=== PATIENT | male | born 1960 | race Caucasian/White ===

== ENCOUNTER 2016-12-27 04:07 | Inpatient (IN) | payer OTHER ==
[~2016-12-27] VITALS: Ht 182.9 cm; Wt 83.7 kg
[2016-12-27] VITALS (12 sets, daily range): BP systolic 112–138; BP diastolic 74–102; PULSE 76–116; RESP 16–26; O2SAT 79–95
[~2016-12-27 04:07] MED LIST: ALBU8.5H4 IH; ATRINH INH; BECL8.7A6 IH; FUR20 PO; GABA-502 PO; IBUP800T28 PO; LISI10TA2 PO; METF850T2 PO; OMEP-113 PO; OXYC30TA77 PO; REGL PO; ZLP5T PO; flexeril PO
--- NOTE | 2016-12-27 04:15 | ED.REPORT ---
HPI-General Illness Date of Service Dec 27, 2016 ED Provider: Dr. Robledo 56 year old male with a history of COPD, DM, and HTN presents to the ED complaining of SOB onset 3 days ago. The feeling is described as similar to a panic attack. Associated symptoms include productive cough with yellow sputum and mild nausea. Patient denies any vomiting. He has been waking up in the morning with diaphoresis and chills in an 80 degree F house. He also describes feeling generalized "flu-like" body aches the other day. Patient has a history of hospitalization for similar conditions, though he denies ever requiring intubation. He is a smoker who had previously quit for 2.5 years but recently relapsed. Medics at the scene discovered him with an oxygen saturation in the mid 70s, and maximum oxygenation with supplemental oxygen was in the low 80s. Nursing Notes Stated Complaint: SHORTNESS OF BREATH Chief Complaint: Respiratory Complaints Nursing Notes Reviewed: Yes Allergies: Coded Allergies: Iodinated Contrast Media - Oral and (Unverified Allergy, Unknown, 12/27/16) clindamycin HCl (Verified Allergy, Unknown, 12/27/16) clindamycin palmitate HCl (Verified Allergy, Unknown, 12/27/16) clindamycin phosphate (Verified Allergy, Unknown, 12/27/16) morphine (Verified Allergy, Unknown, 12/27/16) Scheduled ([flexeril]) 10 MG PO TID Beclomethasone Dipropionate (Qvar) 8.7 Gm Aer.w.adap 8.7 GM IH BID Furosemide (Furosemide) 20 Mg Tab 20 MG PO DAILY Gabapentin (Gabapentin) 300 Mg Capsule 300 MG PO HS Ipratropium [place] (Atrovent HFA) 200 Puff/12.9 Gm Inhaler 2 PUFF INH QID Lisinopril (Lisinopril) 10 Mg Tablet 10 MG PO DAILY Metformin (Metformin) 850 Mg Tablet 850 MG PO BID Omeprazole Magnesium (Omeprazole) 20 Mg Capsule.dr 20 MG PO DAILY Scheduled PRN Albuterol HFA (Albuterol HFA) 8.5 Gm Hfa.aer.ad 1 PUFF IH Q4 PRN PRN For Shortness of Breath Ibuprofen (Ibuprofen) 800 Mg Tablet 800 MG PO BID PRN PRN For Pain Metoclopramide (Metoclopramide) 5 Mg/5 Ml Syrup 10 MG PO QID PRN PRN For Nausea Zolpidem (Ambien) 5 Mg Tab 10 MG PO HS PRN PRN For Insomnia Miscellaneous Medications Oxycodone ER (Oxycontin) 30 Mg Tab.er.12h 30 MG PO General Time Seen by MD: 04:14 Chief Complaint Breathing problem (Shortness of breath) Hx Obtained From: Patient, Spouse Arrived By: Walk-in Sudden in Onset?: No Onset Occurred: 3 days ago Symptom Duration: Since onset Recent Healthcare: No recent hospitalization, Recent doctor visit Similar Sx Previous: Yes Past Medical History Past Medical History Arthritis in both knees. Gastroesophageal reflux. COPD Diabetes Hypertension Reports: COPD, Diabetes mellitus (Type II), Hypertension Past Surgical History Past surgeries to treat hernia, urethra, testicular torsion, and tonsils. Smoking History Current Every Day Smoker Social History Alcohol Use: "Social" Drug Use: Denies drug use Other Social History: Good social support, Ambulatory Status Cane Review of Systems Full Review of Systems Constitutional: Reports: Chills Respiratory: Reports: Prod cough, yellow, Shortness of breath GI: Reports: Nausea, Denies: Vomiting Musculoskeletal: Reports: Myalgia Skin: Reports Diaphoresis Complete sys rev & neg: except as marked. Physical Exam Vital Signs Vital Signs Date Time Temp Pulse Resp B/P Pulse Ox O2 Delivery O2 Flow Rate FiO2 12/27/16 05:23 105 24 89 OxyMask 7 12/27/16 04:46 105 16 135/102 93 12/27/16 04:10 36.8 116 24 136/91 79 Room Air Initial VS: Reviewed General/Constitutional: Awake, Alert, No acute distress Distress / Hydration: Positive: Distress mild Was distressed and lethargic in triage, but does not appear to be in distress now. Head / Eyes: Atraumatic, Normocephalic ENT: Atraumatic, Airway patent Neck: Atraumatic, Full range of motion Respiratory / Chest: Atraumatic, Breath sounds = bilat Diminished Breath Sounds: Positive: Decreased bilateral Cardiovascular: Heart rate NL, Regular rhythm Heart Sounds / Murmur: Positive: Heart sounds diminished Lower Ext Edema: Positive: Left 1+, Right 2+ Abdomen: Atraumatic, Soft, Non-tender, No guarding, No rebound Back: Atraumatic, Full range of motion Upper Extremities Upper Extremity / MS: Atraumatic, No swelling Lower Extremity / Pelvis / MS: Atraumatic, Full range of motion Skin: Atraumatic, No rash Color / Condition: Positive: Diaphoresis present (Mild) Neurologic: Oriented X3, Speech NL, No motor deficits, No sensory deficits Psychiatric: Affect NL, Mood NL Interpretation & Diagnostics Lab Results Interpretation Result Diagram: 12/27/16 0430 12/27/16 0430 Test 12/27/16 04:30 White Blood Count 6.8th/mm3 (3.8-10.1) Red Blood Count 6.21mil/mm3 (4.40-5.80) Hemoglobin 18.3g/dL (13.8-17.2) Hematocrit 52.5% (41.0-50.0) Mean Corpuscular Volume 84.5fL (81-100) Mean Corpuscular Hemoglobin 29.5pg (27.0-35.0) Mean Corpuscular Hemoglobin Concent 34.9% (32.0-37.0) Red Cell Distribution Width 13.9% (12.3-15.4) Platelet Count 141bil/L (150-400) Neutrophils (%) (Auto) 80.3% (40-74) Lymphocytes (%) (Auto) 5.9% (14-46) Monocytes (%) (Auto) 13.3% (4-12) Eosinophils (%) (Auto) 0.4% (0-5) Basophils (%) (Auto) 0.1% (0-3) Prothrombin Time 10.0sec (8.1-12.5) Prothromb Time International Ratio 0.94ratio Activated Partial Thromboplast Time 33.8sec (22.8-33.0) Sodium Level 138mEq/L (134-144) Potassium Level 4.7mEq/L (3.5-5.2) Chloride Level 96mEq/L (97-108) Carbon Dioxide Level 28mmol/L (18-29) Blood Urea Nitrogen 18mg/dL (6-24) Creatinine 0.87mg/dL (0.76-1.27) Estimat Glomerular Filtration Rate 97mL/min (>59) Glucose Level 159mg/dL (60-99) Lactic Acid Level 0.7mmol/L (0.4-2.0) Calcium Level 8.1mg/dL (8.5-10.1) Magnesium Level 1.9mg/dL (1.6-2.6) Total Bilirubin 0.4mg/dL (0.0-1.2) Aspartate Amino Transf (AST/SGOT) 29U/L (0-50) Alanine Aminotransferase (ALT/SGPT) 18U/L (0-44) Alkaline Phosphatase 97U/L (25-150) Troponin T 0.010ug/L (0.0-0.011) Pro-B-Type Natriuretic Peptide 50.73pg/mL (0-121) Total Protein 6.3g/dL (6.4-8.4) Albumin 2.9g/dL (3.4-5.0) Hold Fontanez Top Tube Received (Received) Lab Results Interpretation: influenza negative ECG Interpretation ECG Interpretation: Sinus tachycardia. Rate is 105. Ventricular premature complex. Right atrial enlargement. Anteroseptal infarct, old. ST elevation suggests acute pericarditis. Time: 05:27 Interpreted by: ED physician X-Ray Chest Interpretation Chest Xray Interpretation: no acute infiltrate, COPD appearance, no cardiomegaly, no acute pneumonia. Interpretation / Wet Read by: Wet read ED physician Re-Eval/Medical Decision Med Decision/Clinical Course 56-year-old chronic smoker with COPD presents with significant hypoxemia hypercarbia and grudgingly response to therapy. He is not requiring pressure support at this time. Oxygenation is adequate after 20 mg of albuterol and a DuoNeb. He has had Decadron IV. Magnesium level is adequate. He is admitted now for further evaluation and management including ongoing IV steroids, nebs, and hydration. X-ray does not show an acute pneumonitis, although he does have a mildly productive cough and may benefit from antibiotics. Source of Hx: Old records, Family () Time of Eval: 05:03 Re-Evaluation/Progress Note: Rechecked patient. Explained test results and need for admission. The pt understands and agrees with the plan. All questions are addressed at this time. Consultation : Referral / Consult Name: Jana Milian DO Call Returned at: 05:44 Petroleum Plant Operator: Agrees with eval, Agrees with plan, Accepts admit Note: Spoke with Dr. Milian, hospitalist, discussed patient's case and plan for admission. Dr. Milian agrees with plan accepts admission. Counseled Regarding: Diagnosis, Lab results, Need for admission Discharge & Departure Primary Impression: Respiratory failure Additional Impression: Acute exacerbation of chronic obstructive pulmonary disease (COPD) Disposition: ADMITTED TO HOSPITAL Discharge Condition All VS Reviewed: Yes Condition: Stable Referrals: Sumaya Francisco (PCP) Anderson Attestation Portions of this note were transcribed by Timbo Payan and Evon Rodriguez. I, Dr. Robledo personally performed the history, physical exam and medical decision -making; I reviewed and confirmed the accuracy of the information in the transcribed note. Signed by: Timbo Payan and Anderson Jaeger, 2016 and 0600. copies to: Sumaya Francisco Christopher W MD Dec 27, 2016 04:14 Timbo Payan Dec 27, 2016 04:27 EVON RODRIGUEZ Dec 27, 2016 05:01
[2016-12-27] MEDS ORDERED: Albuterol-Ipratropium 3 mL Inhalation Solution ONE (04:17)
[2016-12-27] MEDS ORDERED: Albuterol 2.5 mg/3 mL Inhalation Solution NEB ONE ×2 (04:17→04:30)
[2016-12-27] MEDS ORDERED: Dexamethasone 10 mg/mL Inj ONE (04:20)
[2016-12-27] MEDS ORDERED: 0.9% Sodium Chloride 1,000 ML IV ONE (04:27)
[2016-12-27] MEDS ORDERED: Albuterol-Ipratropium 3 mL Inhalation Solution NEB ONE (04:30)
[2016-12-27 04:37] LABS: BASOPHILS % (AUTO) 0.1 % (0-3); EOSINOPHILS % (AUTO) 0.4 % (0-5); MONOCYTES % (AUTO) 13.3 % (4-12); Mean Corpuscular Hemoglobin 29.5 pg (27.0-35.0); Mean Corpuscular Volume 84.5 fL (81-100); NEUTROPHILS % (AUTO) 80.3 % (40-74); Platelet Count 141 bil/L (150-400)
[2016-12-27 05:06] LABS: Magnesium 1.9 mg/dL (1.6-2.6); TROPONIN T 0.01 ug/L (0.0-0.011)
[2016-12-27] MEDS ORDERED: cefTRIAXone Inj 2,000 MG in Dextrose 5% Minibag Plus 50 ML IV ONE (05:20)
[2016-12-27 05:34] LABS: INR 0.94 ratio
[2016-12-27] MEDS ORDERED: Albuterol 2.5 mg/3 mL Inhalation Solution NEB PRN (05:50)
[2016-12-27] MEDS ORDERED: Polyethylene Glycol (PEG) 17 Gm Powder PO PRN ×2 (05:50→10:15)
[2016-12-27] MEDS ORDERED: Ondansetron 2 mg/mL 2 mL Inj IVPUSH PRN ×2 (05:50→10:15)
[2016-12-27] MEDS ORDERED: Alum-Mag Hydrox-Simeth 30 mL Suspension PO PRN ×2 (05:50→10:15)
[2016-12-27 06:23] LABS: APPEARANCE,URINE CLEAR (CLEAR,HAZY); COLOR,URINE YELLOW (YELLOW); OCCULT BLOOD,URINE SMALL (NEGATIVE); UROBILINOGEN,URINE NORMAL (NORMAL)
--- NOTE | 2016-12-27 08:04 | ABG ---
DateTimeAnalyzed 07:57:00 -_ pH ____7.326 - 7.350 7.450 pCO2 ___58.4__ -mmHg 35.0 45.0 pO2 ___71.3__ -mmHg 69.0 116 HCO3- ___29.6__ -mmol/L 22.0 26.0 ABE ____2.1__ -mmol/L -2.0 2.0 tHb ___17.8__ -g/dL O2Hb ___90.6__ -% COHb ____2.1__ -% MetHb ____0.9__ -% sO2 ___93.4__ -% 25.0 FIO2 ___21.0__ -% Drawn By BTL - Date/Time Notified____ 08:04:00 -_ Liter_Flow ____4.0__ -L/min Oxygen Device 1 __CANNULA - Notified By BTL - Notified Whom ___Dr. Xavier Marvin -___ B 751 -mmHg tO2 ___22.6__ -Vol% Xavier test _Positive -
[2016-12-27] MEDS: Albuterol-Ipratropium 3 mL Inhalation Solution NEB SCH ×4 (08:24→20:16)
--- NOTE | 2016-12-27 09:10 | DRSVH ---
PROCEDURE: X-RAY CHEST ONE VIEW, PORTABLE ([id number]) INDICATIONS: sob, copd, productive cough TECHNIQUE: One view of the chest was acquired. COMPARISON: LOCATED WITHIN [facility], , CHEST 2VW, 03/16/2014, 12:46. FINDINGS: Surgical changes and devices: None. Lungs and pleura: No pleural effusions or pneumothorax. Lungs are clear. Diffuse scarring/atelectas is Mediastinum: Mediastinal contours appear normal. Heart size is normal. Bones and chest wall: No suspicious bony lesions. Overlying soft tissues appear unremarkable. IMPRESSION: Diffuse/interstitial changes. No acute disease Dictated by: Martin Crain M.D. on 12/27/2016 at 9:07 Approved by: Martin Crain M.D. on 12/27/2016 at 9:08
[2016-12-27] MEDS ORDERED: predniSONE 20 mg Tablet PO SCH (10:20)
[2016-12-27] MEDS: oxyCODONE ER 10 mg ER12 Tablet PO SCH ×3 (11:30→20:08)
[2016-12-27] MEDS: Pantoprazole 20 mg ER24 Tablet PO SCH (12:29)
[2016-12-27] MEDS ORDERED: Glucose 40% Oral Gel 15 Gm Tube PO PRN (12:40)
[2016-12-27] MEDS ORDERED: ALBU18HF INHALATION (13:03)
--- NOTE | 2016-12-27 13:38 | NUR ---
Admit Pt admitted from ED to [facility] room 3003, report received from Raine Douglas RN. Pt arrived in bed, was able to get up and void on own in bathroom.
[2016-12-27] MEDS ORDERED: ZOLP10TA5 PO (14:03)
[2016-12-27] MEDS ORDERED: CYCL10TA9 PO (14:05)
[2016-12-27] MEDS ORDERED: OXYC30TA80 PO (14:11)
[2016-12-27] MEDS: Insulin LISPRO 300 Unit/3 mL Inj SUBQ SCH ×2 (17:23→22:05)
--- NOTE | 2016-12-27 17:37 | PCM.HPMED ---
Subjective Date of Service Dec 27, 2016 Primary Provider: Admitting Physician: Jana Milian DO Primary Care Physician: Sumaya Francisco Attending Physician: Jana Milian DO Chief Complaint: Shortness of breath. History of Present Illness: Mr. Terry Mendez is a 56 year old male with a history of COPD, diabetes mellitus and hypertension who presents to the ED complaining of SOB onset 3 days ago. Associated symptoms include productive cough with yellow sputum and mild nausea. Patient denies any vomiting. He has been waking up in the morning with diaphoresis and chills and "flu-like" body aches the other day. Patient has a history of hospitalization for similar conditions, though he denies ever requiring intubation. Current smoker with roughly 30-40 pack year history. Medics at the scene discovered him with an oxygen saturation in the mid 70s, and maximum oxygenation with supplemental oxygen was in the low 80s. His vitals are stable on 5L O2 nasal canula. Review of Systems: A comprehensive review of systems was conducted with the patient and found to be negative except as above in the History of Present Illness. Allergies Coded Allergies: Iodinated Contrast Media - Oral and (Unverified Allergy, Unknown, 12/27/16) clindamycin HCl (Verified Allergy, Unknown, 12/27/16) clindamycin palmitate HCl (Verified Allergy, Unknown, 12/27/16) clindamycin phosphate (Verified Allergy, Unknown, 12/27/16) morphine (Verified Allergy, Unknown, 12/27/16) Home Medications Albuterol Beclomethasone Cyclobenzaprine 10 mg TID prn Furosemide 20 daily Gabapentin 300 HS Ibuprofen 800 mg Ipratropium bromide Lisinopril 10 mg daily Metformin 850 BID Metoclopramide 5mg / 5ml syrup 10 mg PO QID prn Omeprazole 20 mg daily Oxycodone ER 30 TID Zolpidem 10 mg HS prn PMH Social History Hx Alcohol Use: No Hx Substance Use: No Hx Tobacco Use: Yes Smoking Status: Current Every Day Smoker Exam Vital Signs Vital Sign - Last Date Time Temp Pulse Resp B/P Pulse Ox O2 Delivery O2 Flow Rate FiO2 12/27/16 15:17 84 20 92 OxyMask 5.00 12/27/16 13:49 36.2 132/88 Intake and Output 12/26/16 12/26/16 12/27/16 Cumulative From/Thru 15:00 23:00 07:00 12/27/16 04:10 - 12/27/16 06:10 Intake Total 1000 ml 1000 ml Balance 1000 ml 1000 ml Intake IV Total 1000 ml 1000 ml Exam General: Well-developed middle-aged gentleman lying in bed in no acute distress , well-developed, well-nourished, appropriately interactive HEENT: Normocephalic, atraumatic. External ears without defect. Pupils equal, round, and reactive to light and accommodation. Anicteric sclerae, moist conjunctivae, and no lid lag. Oropharynx free of erythema and cobble stoning with moist mucosa. Neck: Supple with full range of motion. No jugular venous distension. No bruits. No lymphadenopathy or thyromegaly. Cardiovascular: Tachycardic rate and regular rhythm with no murmurs, rubs, or gallops appreciated Pulmonary: Diffuse coarse rhonchi bilaterally, with minor wheezes, Normal respiratory effort with no use of accessory muscles. Abdomen: Bowel tones present. Soft, nontender, nondistended. No hepatosplenomegaly or masses appreciated. Extremities: No clubbing, cyanosis, edema, or lymphadenopathy appreciated. Hands stained with building mechanic grease Skin: Normal temperature, turgor, and texture; no rash, ulcers, or subcutaneous nodules appreciated. Neurological: Cranial nerves grossly intact. Normal muscle strength, tone, and bulk. Reflexes, coordination, and sensory function within normal limits. No known gait impairment. Psychiatric: Normal mood and affect. Alert and oriented to person, place, and time. Lab and Diagnostics Result Diagram: 12/27/1642912/27/16 043 X-Rays, CTs and MRIs X-RAY CHEST ONE VIEW, PORTABLE IMPRESSION: Diffuse/interstitial changes. No acute disease Dictated by: Martin Crain M.D. on 12/27/2016 at 9:07 Additional Diagnostics: [facility] DateTimeAnalyzed 07:57:00 -_ pH ____7.326 - 7.350 7.450 pCO2 ___58.4__ -mmHg 35.0 45.0 pO2 ___71.3__ -mmHg 69.0 116 HCO3- ___29.6__ -mmol/L 22.0 26.0 Assessment & Plan Mr. Terry Mendez is a 56 year old male with a history of COPD, diabetes mellitus and hypertension who presents to the ED complaining of SOB onset 3 days ago with diaphoresis and chills and "flu-like" body aches, and yellow productive sputum with cough. Current smoker with roughly 30-40 pack year history. EMS reports oxygen sats in the mid 70s, and maximum oxygenation with supplemental oxygen was in the low 80s. His vitals are stable on 5L O2 nasal canula. 1. Acute hypercarbic respiratory failure, present on admission. Active. - ABG as above. - Secondary to combination COPD, bacterial pneumonia, respiratory viral infection, continued inhalation of tobacco smoke. - Current is saturating 94% on 5 L nasal cannula. Not on home O2. - Continue supportive care. 1. Acute exacerbation of COPD, present on admission. Active. - Secondary to viral and bacterial infection, as well as continued inhalation of tobacco smoke. - Prednisone 20 mg by mouth daily. - Scheduled duo nebs. - Titrate oxygen to between 88-92%. - Chest X ray - Diffuse/interstitial changes. No acute disease - Strep pneumonia antigen positive in the urine. - Continue ceftriaxone 1 g IV daily. 2. Acute bacterial pneumonia, present on admission. Active. - Legionella antigen, urine negative. - Strep pneumonia antigen in the urine positive. - Continue ceftriaxone 1 g daily. - Blood cultures x2 pending. - Continue supportive treatment per above. - Procalcitonin pending. - White blood cell count normal. 3. Acute viral upper respiratory infection, present on admission. Active. - Viral PCR positive for human metapneumovirus. - Supportive care. 4. Chronic pain and opioid dependence, present on admission. Active - Continue home regimen. 5. Diabetes mellitus, present on admission. Active. - Low-dose nutritional and correctional insulin. 6. Chronic hypertension, not present on admission. Active. - Continue home medications - Lasix 20 mg daily - Lisinopril 10 mg daily 7. Tobacco dependence, present on admission. Active. - Nicotine patch when necessary. 8. Chronic gastroparesis, present on admission. Treated. - Continue home metoclopramide 10 mg by mouth twice a day. 9. Chronic diabetic neuropathy, present admission. Active. - Continue gabapentin 300 at night. 10. Chronic GERD, present on admission. Treated. - Omeprazole 20 mg daily. Acetaminophen for mild pain when necessary. Bowel regimen Senna and MiraLAX scheduled and PRN. Zofran when necessary for nausea and vomiting. SubQ heparin held for now. SCDs in place. High-risk medications: Disposition: Likely here for > 2 midnights. Dependent upon respiratory status and infections markers. Will be discharged home when medically stable. Pain Evaluation: Adequate Pain Control Resuscitation Status: CPR: Attempt Resuscitation Time spent 45 minutes Attending Statement Patient seen and examined with house staff. Agree with all attached documentation. SHANNON CUEVAS DO Dec 27, 2016 17:37 Xavier Wong MD Dec 27, 2016 18:16
[2016-12-28] VITALS (13 sets, daily range): BP systolic 106–130; BP diastolic 71–77; PULSE 74–98; RESP 18–22; O2SAT 90–95
[2016-12-28] MEDS: Albuterol-Ipratropium 3 mL Inhalation Solution NEB SCH ×6 (00:18→20:47)
[2016-12-28] MEDS: oxyCODONE ER 10 mg ER12 Tablet PO SCH ×3 (05:09→20:34)
[2016-12-28 06:08] LABS: BASOPHILS % (AUTO) 0 % (0-3); EOSINOPHILS % (AUTO) 0.2 % (0-5); MONOCYTES % (AUTO) 17.6 % (4-12); Mean Corpuscular Hemoglobin 29.3 pg (27.0-35.0); Mean Corpuscular Volume 86.1 fL (81-100); NEUTROPHILS % (AUTO) 72.8 % (40-74); Platelet Count 131 bil/L (150-400)
--- NOTE | 2016-12-28 06:24 | NUR ---
SAO2/Pain Patient arrived to floor on 5L oxy mask, history of COPD. Raised to 6L, possibly with RT. Is now on 4L oxy mask with sats ranging 91-94%. Patient arrived to ED with sats in the 70's, and desats in room with oxy mask off to take oral medications. He does not use O2 at home. Patient ind. to toilet, experienced some shortness of breath with activity. Complaints of 7-9 out of 10 pain to right shoulder and side. Receiving Oxy 30mg PO TID.
--- NOTE | 2016-12-28 08:29 | PCM.PNMED ---
Subjective Date of Service Dec 28, 2016 Subjective Patient notes feeling significant improvement since presentation yesterday in regard to breathing effort. Feeling so well he is inquiring about discharge later this afternoon or evening, but certainly admits he is not yet anywhere near back to baseline. His oxygen documentation has been weaned some but he still requiring high level to maintain adequate saturations. Denies any fever chills sweats, notes with oxygen deprivation his breathing is comfortable. He has any chest pains or palpitations. That is good no other acute complaints at this time. Exam Vital Signs Vital Sign - Last Date Time Temp Pulse Resp B/P Pulse Ox O2 Delivery O2 Flow Rate FiO2 12/28/16 07:00 36.4 74 20 117/73 93 OxyMask 4.00 Intake and Output 12/27/16 12/27/16 12/28/16 Cumulative From/Thru 15:00 23:00 07:00 12/27/16 04:10 - 12/28/16 05:02 Intake Total 0 ml 1000 ml Output Total 225 ml 225 ml Balance -225 ml 0 ml 775 ml Intake Oral 0 ml 0 ml IV Total 1000 ml Output Urine Total 225 ml 225 ml # Voids 1 1 General: Alert, Oriented X3, Cooperative, Mild Distress Eyes: PERRLA, EOMI Mouth: Mucous Membr Moist/[place] Chest & Lungs: Other (significant wheezing noted in all lung prince with both inspiration and more pronounced with expiration. No consolidation noted airflow is present in all lung prince .) Cardiovascular: Regular Rate/Rhythm Abdomen: Non-tender Extremities: No cyanosis/clubbing/edma bilat Neurological: Grossly Neurologically Intact IVs and Medications Medications Reviewed: Medications were reviewed in detail Lab and Diagnostics Result Diagram: 12/28/1652612/28/16526 X-Rays, CTs and MRIs X-RAY CHEST ONE VIEW, PORTABLE IMPRESSION: Diffuse/interstitial changes. No acute disease Dictated by: Martin Crain M.D. on 12/27/2016 at 9:07 Additional Diagnostics [facility] DateTimeAnalyzed 07:57:00 -_ pH ____7.326 - 7.350 7.450 pCO2 ___58.4__ -mmHg 35.0 45.0 pO2 ___71.3__ -mmHg 69.0 116 HCO3- ___29.6__ -mmol/L 22.0 26.0 Assessment & Plan Mr. Terry Mendez is a 56 year old male with a history of COPD, diabetes mellitus and hypertension who presents to the ED complaining of SOB onset 3 days ago with diaphoresis and chills and "flu-like" body aches, and yellow productive sputum with cough. Current smoker with roughly 30-40 pack year history. EMS reports oxygen sats in the mid 70s, and maximum oxygenation with supplemental oxygen was in the low 80s. His vitals are stable on 5L O2 nasal canula. 1. Acute hypercarbic respiratory failure, present on admission. Active. - ABG as above. - P is likely secondary to her viral respiratory infection with secondary COPD exacerbation. - He is improving with oxygen supplementation and steroid therapy in addition to his home COPD medications. - Continue supportive care consider discharge when respiratory function is further improved, to be off oxygen of course as this is his status at home. - Cessation is paramount importance and this was counseled the patient. 1. Acute exacerbation of COPD, present on admission. Active. - Secondary to viral and bacterial infection, as well as continued inhalation of tobacco smoke. - Prednisone 40 mg by mouth continued daily, for at least 5 day course but may be adjusted based on patient response. - Scheduled duo nebs, willing to when necessary as patient condition improves. - Titrate oxygen to between 88-92%. - Chest X ray - Diffuse/interstitial changes. No acute disease - Strep pneumonia antigen positive in the urine, our regular normal white blood cell count lack of fever and normal pro-calcitonin I do not feel acute bacterial pneumonia is playing a role in patients respiratory failure. . - Continue ceftriaxone 1 g IV daily as precaution, likely discontinue with 3 day course to treat only urinary infection, should blood cultures be negative. 2. Acute bacterial pneumonia, present on admission. Active. - Legionella antigen, urine negative. - Strep pneumonia antigen in the urine positive. - Continue ceftriaxone 1 g daily, plan to discontinue as noted above. - Blood cultures x2 pending. - Continue supportive treatment per above. - Procalcitonin not supportive of extraluminal - White blood cell count maintenance normal. 3. Acute viral upper respiratory infection, present on admission. Active. - Viral PCR positive for human metapneumovirus. - Supportive care. 4. Chronic pain and opioid dependence, present on admission. Active - Continue home regimen. 5. Diabetes mellitus, present on admission. Active. - Low-dose nutritional and correctional insulin. 6. Chronic hypertension, not present on admission. Active. - Continue home medications - Lasix 20 mg daily - Lisinopril 10 mg daily 7. Tobacco dependence, present on admission. Active. - Nicotine patch when necessary. 8. Chronic gastroparesis, present on admission. Treated. - Continue home metoclopramide 10 mg by mouth twice a day. 9. Chronic diabetic neuropathy, present admission. Active. - Continue gabapentin 300 at night. 10. Chronic GERD, present on admission. Treated. - Omeprazole 20 mg daily. Pain Evaluation: Adequate Pain Control VTE Mechanical Devices: Intermittant Pneumatic CD Resuscitation Status: CPR: Attempt Resuscitation Time spent 25 minutes Howie Garay DO Dec 28, 2016 08:29
[2016-12-28] MEDS ORDERED: predniSONE 20 mg Tablet PO SCH (08:30)
[2016-12-28] MEDS: Pantoprazole 20 mg ER24 Tablet PO SCH (08:38)
[2016-12-28] MEDS: Insulin LISPRO 300 Unit/3 mL Inj SUBQ SCH ×4 (08:38→22:00)
[2016-12-28] MEDS ORDERED: 0.9% Sodium Chloride 100 ML ONE (08:40)
[2016-12-28] MEDS: cefTRIAXone Inj 1,000 MG in Dextrose 5% Minibag Plus 50 ML IV SCH (08:41)
--- NOTE | 2016-12-28 08:49 | DRSVH ---
PROCEDURE: X-RAY CHEST ONE VIEW, PORTABLE ([id number]) INDICATIONS: possible pneumonia, shortness of breath TECHNIQUE: One view of the chest was acquired. COMPARISON: [facility], CR, XR CHEST 1VW (PORTABLE), 12/27/2016, 4:24. FINDINGS: Surgical changes and devices: None. Lungs and pleura: No pleural effusions or pneumothorax. Lungs are clear. Mediastinum: Mediastinal contours appear normal. Heart size is normal. Bones and chest wall: No suspicious bony lesions. Overlying soft tissues appear unremarkable. IMPRESSION: No acute pulmonary process. Dictated by: Frances Toney M.D. on 12/28/2016 at 8:46 Approved by: Frances Toney M.D. on 12/28/2016 at 8:48
--- NOTE | 2016-12-28 10:11 | NUR ---
Social Work: Screening Data: Pt is a 56 y/o male admitted for COPD, hypoxemia respiratory failur. Pt's PCP is Dr Francisco, pt's insurance is [employer]. EMR reviewed. Pt's readmit score is 3, high. No d/c planning needs anticipated at this time. CIGARETTE FILTER INSPECTOR will continue to follow if needs arise. Assessment: Pt who is independent at baseline. Plan: Pt will d/c home via POV when medically stable. No d/c planning needs anticipated at this time. CIGARETTE FILTER INSPECTOR will continue to follow if needs arise. ALEXANDRA Newman
--- NOTE | 2016-12-28 15:43 | NUR ---
Pain Pt was reporting 7-8/10 pain in knees and right shoulder. Pt appeared pale and diaphoretic, with mild tremors. Spoke with charge nurse, and received permission to administer Oxycontin ~2 hours before next dose was due. Pain reassessed one hour after administration: Pt reported new pain level of 5/10; physical appeared more relaxed. Tremors no longer noted, color returned to normal/pink, no longer sweaty.
[2016-12-28] MEDS: Fluticasone 100 mCg Inhaler INHALATION SCH (20:34)
[2016-12-29] VITALS (14 sets, daily range): BP systolic 106–117; BP diastolic 71–83; PULSE 85–110; RESP 18–28; O2SAT 90–96
[2016-12-29] MEDS: Albuterol-Ipratropium 3 mL Inhalation Solution NEB SCH ×6 (00:42→20:54)
[2016-12-29 05:32] LABS: BASOPHILS % (AUTO) 0 % (0-3); EOSINOPHILS % (AUTO) 0.4 % (0-5); MONOCYTES % (AUTO) 10.8 % (4-12); Mean Corpuscular Hemoglobin 29.7 pg (27.0-35.0); Mean Corpuscular Volume 87.2 fL (81-100); NEUTROPHILS % (AUTO) 82.5 % (40-74); Platelet Count 146 bil/L (150-400)
--- NOTE | 2016-12-29 06:04 | NUR ---
Respiratory Patient received scheduled neb and starting coughing after treatment finished and was unable to catch his breath. RT was notified and returned to assess patient. Once, patient could calm down and slow his breathing down he was able to catch his breath. RT remained with patient.
--- NOTE | 2016-12-29 07:56 | PCM.PNMED ---
Subjective Date of Service Dec 29, 2016 Subjective Patient remains extremely short of breath, only able to mean saturations of even 90% on 5 L of oxygen. 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 He has been noncompliant with nebulizer therapies, the reason for which she cites as severe anxiety experience during treatments make him unable to continue. No significant changes in breathing effort/shortness of breath noted since yesterday. Denies fever and chills over, also denies chest pains or palpitations. Exam Vital Signs Vital Sign - Last Date Time Temp Pulse Resp B/P Pulse Ox O2 Delivery O2 Flow Rate FiO2 12/29/16 06:39 87 12/29/16 04:44 Supplement Oxygen 12/29/16 04:39 36.1 22 117/74 90 5.00 Intake and Output 12/28/16 12/28/16 12/29/16 Cumulative From/Thru 15:00 23:00 07:00 12/27/16 04:10 - 12/29/16 06:51 Intake Total 400 ml 880 ml 600 ml 2880 ml Output Total 550 ml 425 ml 1200 ml Balance 400 ml 330 ml 175 ml 1680 ml Intake Oral 400 ml 800 ml 600 ml 1800 ml IV Total 80 ml 1080 ml Output Urine Total 550 ml 425 ml 1200 ml # Voids 2 3 # Bowel Movements 0 0 Exam General: Alert, Oriented X3, Cooperative, Mild- moderate Distress Eyes: PERRLA, EOMI Mouth: Mucous Membranes Moist/Minor Chest & Lungs: Significant wheezing noted in all lung prince with both inspiration and more pronounced with expiration. No consolidation noted airflow is present in all lung prince . Cardiovascular: Regular Rate/Rhythm Abdomen: Non-tender Extremities: No cyanosis/clubbing/edema bilat Neurological: Grossly Neurologically Intact IVs and Medications Medications Reviewed: Medications were reviewed in detail Lab and Diagnostics Result Diagram: 12/29/16 0505 12/28/16 0527 X-Rays, CTs and MRIs X-RAY CHEST ONE VIEW, PORTABLE IMPRESSION: Diffuse/interstitial changes. No acute disease Dictated by: Martin Crain M.D. on 12/27/2016 at 9:07 Additional Diagnostics [facility] DateTimeAnalyzed 07:57:00 -_ pH ____7.326 - 7.350 7.450 pCO2 ___58.4__ -mmHg 35.0 45.0 pO2 ___71.3__ -mmHg 69.0 116 HCO3- ___29.6__ -mmol/L 22.0 26.0 Assessment & Plan Mr. Terry Mendez is a 56 year old male with a history of COPD, diabetes mellitus and hypertension who presents to the ED complaining of SOB onset 3 days ago with diaphoresis and chills and "flu-like" body aches, and yellow productive sputum with cough. Current smoker with roughly 30-40 pack year history. EMS reports oxygen sats in the mid 70s, and maximum oxygenation with supplemental oxygen was in the low 80s. His vitals are stable on 5L O2 nasal canula. 1. Acute hypercarbic respiratory failure, present on admission. Active. - Pt is likely secondary to his viral respiratory infection with secondary COPD exacerbation. - He is at least stable with oxygen supplementation and steroid therapy in addition to his home COPD medications, but demonstrating no significant improvement - Steroid doses been increased from 40 up to 60 mg of prednisone daily, given poor response. - Cessation is paramount importance and this was counseled the patient. 1. Acute exacerbation of COPD, present on admission. Active. - Secondary to viral and bacterial infection, as well as continued inhalation of tobacco smoke. - Prednisone 60 mg by mouth continued daily, for at least 5 day course but may be adjusted based on patient response. - Scheduled duo nebs, with Ativan prescribed preceding treatments in an attempt to attenuate anxiety experienced during therapy. I believe part of patient's low recovery is due to his noncompliance with nebulizer treatments. - Titrate oxygen to between 88-92%. - Chest X ray - Diffuse/interstitial changes. No acute disease - Strep pneumonia antigen positive in the urine, our regular normal white blood cell count lack of fever and normal pro-calcitonin I do not feel acute bacterial pneumonia is playing a role in patients respiratory failure. . - Continue ceftriaxone 1 g IV daily as precaution, likely discontinued tomorrow if negative blood cultures 2. Acute bacterial pneumonia, present on admission. Active. - Legionella antigen, urine negative. - Strep pneumonia antigen in the urine positive. - Continue ceftriaxone 1 g daily, plan to discontinue as noted above. - Blood cultures x2 pending, preliminary results are negative. - Continue supportive treatment per above. - Procalcitonin not supportive of pneumonia - White blood cell count maintenance normal. 3. Acute viral upper respiratory infection, present on admission. Active. - Viral PCR positive for human metapneumovirus. - Supportive care. 4. Chronic pain and opioid dependence, present on admission. Active - Continue home regimen. 5. Diabetes mellitus, present on admission. Active. - Low-dose nutritional and correctional insulin. 6. Chronic hypertension, not present on admission. Active. - Continue home medications - Lasix 20 mg daily - Lisinopril 10 mg daily 7. Tobacco dependence, present on admission. Active. - Nicotine patch when necessary. 8. Chronic gastroparesis, present on admission. Treated. - Continue home metoclopramide 10 mg by mouth twice a day. 9. Chronic diabetic neuropathy, present admission. Active. - Continue gabapentin 300 at night. 10. Chronic GERD, present on admission. Treated. - Omeprazole 20 mg daily. Pain Evaluation: Adequate Pain Control VTE Mechanical Devices: Intermittant Pneumatic CD Resuscitation Status: CPR: Attempt Resuscitation Time spent 30 minutes Howie Garay DO Dec 29, 2016 07:56
[2016-12-29] MEDS: Insulin LISPRO 300 Unit/3 mL Inj SUBQ SCH ×4 (08:00→21:42)
[2016-12-29] MEDS: Fluticasone 100 mCg Inhaler INHALATION SCH ×2 (08:02→20:30)
[2016-12-29] MEDS: cefTRIAXone Inj 1,000 MG in Dextrose 5% Minibag Plus 50 ML IV SCH (08:02)
[2016-12-29] MEDS: Pantoprazole 20 mg ER24 Tablet PO SCH (08:03)
[2016-12-29] MEDS: oxyCODONE ER 10 mg ER12 Tablet PO SCH ×3 (08:04→21:30)
[2016-12-29] MEDS: LORazepam 0.5 mg Tablet PO SCH ×2 (08:08→12:19)
[2016-12-29] MEDS ORDERED: predniSONE 20 mg Tablet PO SCH (08:30)
--- NOTE | 2016-12-29 09:00 | NUR ---
respiratory distress pt c/o of increasing SOB. Found pt in tripod stance with increased WOB on 5L oxymask w/Sp02 of 83%. MD and RT notified. RT increased O2 to 12L oxymask and administered Neb tx. Pts continued to c/o difficulty of breathing after tx and Sp02 on 12L 87-91%. Pt quickly becomes hypoxic if supplemental 02 is removed; desats into low 80s. Continue to monitor
--- NOTE | 2016-12-29 15:16 | ABG ---
DateTimeAnalyzed 13:08:00 -_ pH ____7.376 - 7.350 7.450 pCO2 ___56.7__ -mmHg 35.0 45.0 pO2 ___94.0__ -mmHg 69.0 116 HCO3- ___32.4__ -mmol/L 22.0 26.0 ABE ____5.4__ -mmol/L -2.0 2.0 tHb ___17.8__ -g/dL O2Hb ___95.6__ -% COHb ____0.7__ -% MetHb ____0.9__ -% sO2 ___97.2__ -% 25.0 FIO2 ___60.0__ -% Drawn By as - Date/Time Notified____ 13:12:00 -_ Spontaneous_RR ___16.0__ -b/min Liter_Flow ___12.0__ -L/min Oxygen Device 1 __oxymask - Notified By LW - Notified Whom Dr Garrison - B 743 -mmHg tO2 ___24.0__ -Vol% Xavier test _Positive -
--- NOTE | 2016-12-29 17:00 | NUR ---
transfer to [facility] Gave report to Sachi Bran. Tfr pt from [facility] 3003 to [facility] 2008 in bed with pts belongings, medications and chart. pt tfr on 12L oxymask with Sp02 of 89% and increase WOB.
--- NOTE | 2016-12-29 18:23 | NUR ---
Transfer from [facility] Patient a/o x 4, sob at rest and with exertion, neb tx given per RTC apon arrival to floor. O2 sat 89-91 RA WA and 83% RA when asleep, apneic periods noted. Oxymask at 12 L sat 91-93% WA and 89-90% while asleep. Lungs course with exp wheezes and crackles. Patient taking diet well. VSS, tele ST 100-110's.
[2016-12-30] VITALS (7 sets, daily range): BP systolic 116–151; BP diastolic 72–96; PULSE 86–107; RESP 20–22; O2SAT 89–96
[2016-12-30] MEDS: Albuterol-Ipratropium 3 mL Inhalation Solution NEB SCH ×5 (00:59→16:30)
[2016-12-30 02:29] LABS: BASOPHILS % (AUTO) 0 % (0-3); EOSINOPHILS % (AUTO) 0.3 % (0-5); MONOCYTES % (AUTO) 16.2 % (4-12); Mean Corpuscular Hemoglobin 29.1 pg (27.0-35.0); Mean Corpuscular Volume 88.9 fL (81-100); NEUTROPHILS % (AUTO) 76.2 % (40-74); Platelet Count 166 bil/L (150-400)
[2016-12-30] MEDS ORDERED: MethylprednisoLONE Sodium Succinate 62.5 mg/mL 2 mL Inj IVPUSH SCH (02:30)
[2016-12-30] MEDS: guaiFENesin 20 mg/mL 10 mL Syrup PO PRN ×2 (04:38→07:47)
--- NOTE | 2016-12-30 06:38 | NUR ---
Nebs/Cough/O2 Pt unable to tolerate neb treatment at start of shift d/t increased cough and pain. Sats maintaining on 13L oxymask at the time. Pt's breathing labored and wheezy, pt refusing further neb treatments. paged about adding PRN cough medication and order given for PRN robitussin and tessalon pearles. MD also ordered Q6 Solumedrol. Pt given cough medication before next neb treatment and was agreeable to try nebs again. Pt got through most of second treatment and was able to finish the third neb treatment of shift w/out coughing. O2 titrated down to 7L oxymask given O2 was maintaining mid 90s. Currently sats 93 on 7L. Pt voices that he "feels better" this morning.
[2016-12-30] MEDS: oxyCODONE ER 10 mg ER12 Tablet PO SCH ×2 (07:47→13:47)
[2016-12-30] MEDS: Pantoprazole 20 mg ER24 Tablet PO SCH (07:57)
[2016-12-30] MEDS: Insulin LISPRO 300 Unit/3 mL Inj SUBQ SCH ×2 (08:00→12:32)
[2016-12-30] MEDS: Fluticasone 100 mCg Inhaler INHALATION SCH (08:04)
[2016-12-30] MEDS ORDERED: predniSONE 20 mg Tablet PO SCH (08:30)
[2016-12-30] MEDS ORDERED: LORazepam 1 mg Tablet PO PRN (10:40)
--- NOTE | 2016-12-30 14:17 | NUR ---
Home O2 Eval Sat on RA: 87% Sat walking on RA: 84% Sat walking on on 4 LNC: 90%
--- NOTE | 2016-12-30 16:55 | NUR ---
Anxiety/Pain pt. has chronic shoulder and back pain. Treated with TID oxycontin. Pt. became anxious today about wanting to leave and is feeling anxious in general. MD aware and PRN ativan ordered. Pt. refused ativan earlier today, but then requested it later. He states this helped a little, but is still very anxious to leave. Home oxygen arranged in anticipation of discharge.
[2016-12-30] MEDS ORDERED: PRED-508 PO (16:56)
--- NOTE | 2016-12-30 17:00 | PCM.DIMED ---
Discharge Instructions Date of Service Dec 30, 2016 Dates of Hospitalization Dec 27, 2016 at 05:49 Discharge Diagnosis Discharge Diagnosis Acute on chronic respiratory failure with hypoxia (COPD flare) Medication Instructions You should use oxygen at home to maintain oxygen saturation greater than 88%. Currently requiring 3 L of oxygen. You may adjust this downward if your lung function improves and your oxygen level rises. When your oxygen is greater than 88% on room air then you do not need to use your home oxygen at that point. You will take prednisone tablets for the next 3 days. You should continue on your other usual COPD pulmonary inhaler medications. Test Results Oxygen saturation 85% on room air. Diet No restrictions Activity Other (home oxygen therapy) Call your provider Shortness of breath Patient Instructions Follow-up plan Contact Sumaya Rodriguez for a posthospitalization follow-up appointment within 1 week. Follow-up Provider: Sumaya Francisco Follow-up with PCP in: 1 week Ector Rios MD Dec 30, 2016 17:00
--- NOTE | 2016-12-30 17:43 | NUR ---
Discharge Pt. discharged to home at 1728 via private vehicle accompanied by . pt. in stable condition transported via w/c with [employer] oxygen tank. IV and tele dc'd prior to discharge. All belongings, scripts and instructions with pt. No questions or concerns at this time.
--- NOTE | 2016-12-30 19:20 | PCM.DC.MED ---
Discharge Summary Date of Service Dec 30, 2016 Dates of Hospitalization Date of Hospital Admission Dec 27, 2016 at 05:49 Date of Discharge: Dec 30, 2016 Providers: Admitting Physician: Jana Milian DO Primary Care Physician: Sumaya Francisco Attending Physician: Jana Milian DO Diagnosis at Time of Discharge Diagnosis at Time of Discharge Acute on chronic respiratory failure with hypoxia (COPD flare) Procedures XRay, CTs & MRIs X-RAY CHEST ONE VIEW, PORTABLE IMPRESSION: Diffuse/interstitial changes. No acute disease Dictated by: Martin Crain M.D. on 12/27/2016 at 9:07 Other Diagnostics [facility] DateTimeAnalyzed 07:57:00 -_ pH ____7.326 - 7.350 7.450 pCO2 ___58.4__ -mmHg 35.0 45.0 pO2 ___71.3__ -mmHg 69.0 116 HCO3- ___29.6__ -mmol/L 22.0 26.0 Brief History History of Present Illness (per admission note): Mr. Terry Mendez is a 56 year old male with a history of COPD, diabetes mellitus and hypertension who presents to the ED complaining of SOB onset 3 days ago. Associated symptoms include productive cough with yellow sputum and mild nausea. Patient denies any vomiting. He has been waking up in the morning with diaphoresis and chills and "flu-like" body aches the other day. Patient has a history of hospitalization for similar conditions, though he denies ever requiring intubation. Current smoker with roughly 30-40 pack year history. Medics at the scene discovered him with an oxygen saturation in the mid 70s, and maximum oxygenation with supplemental oxygen was in the low 80s. His vitals are stable on 5L O2 nasal canula. . Hospital Course #. Acute hypercarbic respiratory failure, present on admission. Active. Pt is likely secondary to his metapneumovirus viral respiratory infection with secondary COPD exacerbation. Chest X ray - Diffuse/interstitial changes. No acute disease - Modest clinical improvement with high-dose glucocorticoids and continued aggressive bronchodilators. - Tobacco cesssation is paramount importance and this was counseled the patient. #. Acute exacerbation of COPD, present on admission. Active. - Prednisone 60 mg by mouth continued daily, for at least 5 day course but may be adjusted based on patient response. - Titrate oxygen to between 88-92%. - Discharged on home oxygen 2-3 L, titrate to 88% #. Possible, Acute bacterial pneumonia, ruled out. Strep pneumonia antigen positive in the urine, with normal white blood cell count lack of fever and normal pro-calcitonin I do not feel acute bacterial pneumonia is playing a role in patients respiratory failure. - Initially treated with ceftriaxone 1 g daily, plan to discontinue as noted above. - Blood cultures x2 pending, preliminary results are negative. - Continue supportive treatment per above. - Procalcitonin not supportive of pneumonia - White blood cell count normal.Patient was afebrile. No purulent phlegm. Chest x-ray unremarkable - Antibiotics were discontinued #. Acute viral upper respiratory infection, present on admission. Active. - Viral PCR positive for human metapneumovirus. - Supportive care. #. Chronic pain and opioid dependence, present on admission. Active - Continue home regimen. #. Diabetes mellitus, present on admission. Active. Well controlled hemoglobin A1c 6.8%. - Low-dose nutritional and correctional insulin. - Continue his prior dose of metformin. #. Chronic hypertension, not present on admission. Active. - Continue home medications #. Tobacco dependence, present on admission. Active. - Counseled on cessation by Luis #. Chronic gastroparesis, present on admission. Treated. - Continue home metoclopramide 10 mg by mouth twice a day. #. Chronic diabetic neuropathy, present admission. Active. - Continue gabapentin 300 at night. #. Chronic GERD, present on admission. Treated. - Omeprazole 20 mg daily. Exam Vital Signs (Last) Date Time Temp Pulse Resp B/P Pulse Ox O2 Delivery O2 Flow Rate FiO2 12/30/16 13:40 88 20 91 Nasal Cannula 3.00 12/30/16 11:22 36.7 151/72 Exam General: Anxious man, breathing comfortably, no acute distress HEENT: sclerae anicteric, oral mucosa moist Neck: no JVD Chest: Slight expiratory prolongation but no acute wheeze, no focal crackles or dullness Cardiac: S1S2, no murmur Abdomen: BS normal, non-tender Extremities: No edema Neuro: A&O, cranial nerves symmetric, motor strength 5/5, coordination normal, mild tremor Test 12/27/16 04:30 12/27/16 06:00 12/28/16 05:27 12/30/16 02:15 Prothrombin Time 10.0sec (8.1-12.5) Prothromb Time International Ratio 0.94ratio Activated Partial Thromboplast Time 33.8sec (22.8-33.0) Hemoglobin A1c 6.8% (4.8-5.6) Lactic Acid Level 0.7mmol/L (0.4-2.0) Magnesium Level 1.9mg/dL (1.6-2.6) Troponin T 0.010ug/L (0.0-0.011) Pro-B-Type Natriuretic Peptide 50.73pg/mL (0-121) Hold Fontanez Top Tube Received (Received) Urine Color Yellow (YELLOW) Urine Appearance Clear (CLEAR,HAZY) Urine pH 5.0 (5.0-8.0) Urine Specific [place] 1.030 (1.003-1.035) Urine Protein >300mg/dL (NEG,TRACE) Urine Glucose (UA) Negativemg/dL (NEGATIVE) Urine Ketones Negativemg/dL (NEGATIVE) Urine Occult Blood Small (NEGATIVE) Urine Nitrite Negative (NEGATIVE) Urine Bilirubin Negative (NEGATIVE) Urine Urobilinogen Normalmg/dL (NORMAL) Urine Leukocyte Esterase Negative (NEGATIVE) Urine RBC 0-2/hpf (0-2) Urine WBC 0-5/hpf (0-5) Urine Epithelial Cells Occasional/hpf (NONE-MOD) Urine Crystals None seen (NONE SEEN) Urine Bacteria Few/hpf (NONE-FEW) Urine Hyaline Casts Occasional/lpf (NONE) Urine Granular Casts Occasional (NONE SEEN) Urine Waxy Casts None seen (NONE SEEN) Urine Red Blood Cell Casts None seen (NONE SEEN) Urine White Blood Cell Casts None seen (NONE SEEN) Urine Mucus Present (None Seen) Urine Trichomonas None seen (NONE SEEN) Urine Yeast None (NONE SEEN) Urinalysis Comment None Urine Culture Reflexed Not indicated Urine Legionella pneumophilia Ag Negative (Negative) Total Bilirubin 0.2mg/dL (0.0-1.2) Aspartate Amino Transf (AST/SGOT) 16U/L (0-50) Alanine Aminotransferase (ALT/SGPT) 13U/L (0-44) Alkaline Phosphatase 84U/L (25-150) Total Protein 5.0g/dL (6.4-8.4) Albumin 2.8g/dL (3.4-5.0) Procalcitonin 0.07ng/mL (0.00-0.08) White Blood Count 5.8th/mm3 (3.8-10.1) Red Blood Count 5.57mil/mm3 (4.40-5.80) Hemoglobin 16.2g/dL (13.8-17.2) Hematocrit 49.5% (41.0-50.0) Mean Corpuscular Volume 88.9fL (81-100) Mean Corpuscular Hemoglobin 29.1pg (27.0-35.0) Mean Corpuscular Hemoglobin Concent 32.7% (32.0-37.0) Red Cell Distribution Width 14.1% (12.3-15.4) Platelet Count 166bil/L (150-400) Neutrophils (%) (Auto) 76.2% (40-74) Lymphocytes (%) (Auto) 7.0% (14-46) Monocytes (%) (Auto) 16.2% (4-12) Eosinophils (%) (Auto) 0.3% (0-5) Basophils (%) (Auto) 0% (0-3) Sodium Level 142mEq/L (134-144) Potassium Level 4.8mEq/L (3.5-5.2) Chloride Level 100mEq/L (97-108) Carbon Dioxide Level 32mmol/L (18-29) Blood Urea Nitrogen 34mg/dL (6-24) Creatinine 0.88mg/dL (0.76-1.27) Estimat Glomerular Filtration Rate 96mL/min (>59) Glucose Level 183mg/dL (60-99) Calcium Level 8.3mg/dL (8.5-10.1) Discharge Medications Discharge Medications Beclomethasone Dipropionate (Qvar) 8.7 Gm Aer.w.adap 2 PUFFS IH BID (Reported) Cyclobenzaprine (Cyclobenzaprine) 10 Mg Tablet 10 MG PO TID (Reported) Furosemide (Furosemide) 20 Mg Tab 20 MG PO DAILY (Reported) Gabapentin (Gabapentin) 300 Mg Capsule 300 MG PO HS (Reported) Ipratropium [place] (Atrovent HFA) 200 Puff/12.9 Gm Inhaler 2 PUFF INH BID ( Reported) Lisinopril (Lisinopril) 10 Mg Tablet 10 MG PO DAILY (Reported) Metformin (Metformin) 850 Mg Tablet 850 MG PO BID (Reported) Omeprazole Magnesium (Omeprazole) 20 Mg Capsule.dr 20 MG PO DAILY (Reported) Prednisone (Deltasone) 20 Mg Tablet 40 MG PO DAILY Prescribed by: FABIOLA RAE MD oxyCODONE (oxyCODONE) 30 Mg Tablet 30 MG PO TID (Reported) As needed Albuterol Sulfate (Ventolin HFA Inhaler) 200 Puff/18 Gm Inhaler 2 PUFFS INHALATION Q4H PRN PRN For Shortness of Breath (Reported) Metoclopramide (Metoclopramide) 5 Mg/5 Ml Syrup 10 MG PO QID PRN PRN For Nausea (Reported) Zolpidem (Zolpidem) 10 Mg Tablet 10 MG PO HS PRN PRN Insomnia (Reported) Additional med instructions You should use oxygen at home to maintain oxygen saturation greater than 88%. Currently requiring 3 L of oxygen. You may adjust this downward if your lung function improves and your oxygen level rises. When your oxygen is greater than 88% on room air then you do not need to use your home oxygen at that point. You will take prednisone tablets for the next 3 days. You should continue on your other usual COPD pulmonary inhaler medications. Followup Plan Disposition: Home with home O2, at least temporarily. To reassess after completion of course of prednisone. Follow-up plan Contact Sumaya Rodriguez for a posthospitalization follow-up appointment within 1 week. Discharge Diet: No restrictions Discharge Activity: Other (home oxygen therapy) Follow-up Provider: Sumaya Francisco Follow-up with PCP in: 1 week Time spent 35 minutes copies to: Sumaya Francisco Jeffrey W MD Dec 30, 2016 17:01
== END 2016-12-30 17:28 | disposition home or self-care (01) | DRG 190 ==
LOC: SED 04:07 → OFED 05:49 → MPC 13:35 → PCC 12-29 16:47
PROVIDERS: ADMIT Internal Medicine; ATTEND Internal Medicine
PROC: 4A033R1 Measurement of Arterial Saturation, Peripheral, Percutaneous Approach (ICD-10-PCS; principal; 2016-12-27)
DX: J44.1 Chronic obstructive pulmonary disease with (acute) exacerbation (principal); J96.21 Acute and chronic respiratory failure with hypoxia; E11.40 Type 2 diabetes mellitus with diabetic neuropathy, unspecified; K31.84 Gastroparesis; F11.20 Opioid dependence, uncomplicated; F17.210 Nicotine dependence, cigarettes, uncomplicated; Z79.84 Long term (current) use of oral hypoglycemic drugs; B97.81 Human metapneumovirus as the cause of diseases classified elsewhere; G89.29 Other chronic pain; I10 Essential (primary) hypertension; K21.9 Gastro-esophageal reflux disease without esophagitis; Z91.19 Patient's noncompliance with other medical treatment and regimen; J06.9 Acute upper respiratory infection, unspecified

== ENCOUNTER 2017-03-08 00:57 | Emergency (ER) | payer OTHER ==
[~2017-03-08] VITALS: Ht 182.9 cm; Wt 85.5 kg
[~2017-03-08 00:57] MED LIST changes: +ALBU18HF INHALATION; -ALBU8.5H4 IH; +CYCL10TA9 PO; -IBUP800T28 PO; -OXYC30TA77 PO; +OXYC30TA80 PO; +PRED-508 PO; -ZLP5T PO; +ZOLP10TA5 PO; -flexeril PO
[2017-03-08 01:02] VITALS: BP 134/86; PULSE 76; RESP 16; O2SAT 94
[2017-03-08] MEDS ORDERED: Tetracaine 0.5% 4 mL Ophthalmic Solution BOTH_EYES ONE (01:05)
--- NOTE | 2017-03-08 01:05 | ED.REPORT ---
HPI-Eye Problem Date of Service Mar 08, 2017 ED Provider: Flo Strauss DO The patient is a 56 year old male who presents to the ED due to bilateral eye pain following a welding accident 10 hours [employer]. Pt accidentally exposed his eyes to ultraviolet light and immediately experienced extreme bilateral eye pain. He is able to see but his vision is blurred. Nursing Notes Stated Complaint: BILATERAL FLASHBURN TO EYES FROM WELDING Chief Complaint: Eye Nursing Notes Reviewed: Yes Allergies: Coded Allergies: Iodinated Contrast Media - Oral and (Unverified Allergy, Unknown, 03/08/17) clindamycin HCl (Verified Allergy, Unknown, 03/08/17) clindamycin palmitate HCl (Verified Allergy, Unknown, 03/08/17) clindamycin phosphate (Verified Allergy, Unknown, 03/08/17) morphine (Verified Allergy, Unknown, 03/08/17) Scheduled Beclomethasone Dipropionate (Qvar) 8.7 Gm Aer.w.adap 2 PUFFS IH BID Cyclobenzaprine (Cyclobenzaprine) 10 Mg Tablet 10 MG PO TID Furosemide (Furosemide) 20 Mg Tab 20 MG PO DAILY Gabapentin (Gabapentin) 300 Mg Capsule 300 MG PO HS Ipratropium [place] (Atrovent HFA) 200 Puff/12.9 Gm Inhaler 2 PUFF INH BID Lisinopril (Lisinopril) 10 Mg Tablet 10 MG PO DAILY Metformin (Metformin) 850 Mg Tablet 850 MG PO BID Omeprazole Magnesium (Omeprazole) 20 Mg Capsule.dr 20 MG PO DAILY Prednisone (Deltasone) 20 Mg Tablet 40 MG PO DAILY oxyCODONE (oxyCODONE) 30 Mg Tablet 30 MG PO TID Scheduled PRN Albuterol Sulfate (Ventolin HFA Inhaler) 200 Puff/18 Gm Inhaler 2 PUFFS INHALATION Q4H PRN PRN For Shortness of Breath Metoclopramide (Metoclopramide) 5 Mg/5 Ml Syrup 10 MG PO QID PRN PRN For Nausea Zolpidem (Zolpidem) 10 Mg Tablet 10 MG PO HS PRN PRN Insomnia General Time Seen by MD: 01:05 Chief Complaint Pain after welding (bilateral eye pain) Hx Obtained From: Patient Arrived By: Walk-in Sudden in Onset?: Yes Onset Occurred: 9 - 12 hours ago Symptom Duration: Since onset Context: Occurred at: Workplace Location: : Eye both Quality: Painful Severity: Current: Moderate Recent Healthcare: No recent doctor visit, No recent hospitalization Similar Sx Previous: No Past Medical History Past Medical History Arthritis in both knees. Gastroesophageal reflux. COPD Diabetes Hypertension Reports: COPD, Diabetes mellitus, Hypertension Past Surgical History Past surgeries to treat hernia, urethra, testicular torsion, and tonsils. Smoking History Current Every Day Smoker Social History Alcohol Use: "Social" Drug Use: Denies drug use Other Social History: Good social support, Ambulatory Status Cane Review of Systems Eyes: Reports: Blurred bilateral, Eye pain bilateral Complete sys rev & neg: except as marked. Physical Exam Initial Vital Signs Vital Signs (First) Date Time Temp Pulse Resp B/P Pulse Ox O2 Delivery O2 Flow Rate FiO2 03/08/17 01:02 36.2 76 16 134/86 94 Room Air Initial VS: Reviewed Re-Eval/Medical Decision Med Decision/Clinical Course Classical ultraviolet keratitis. No evidence of a ruptured globe. No signs of an infection. Anterior chambers clear. Visual acuity is intact and symmetric after anesthetic. Plan for erythromycin ophthalmic topically. Short course of opiates for pain. Ophthalmology referral for follow-up on Friday. Re-Evaluation/Progress : Time of Eval: Patient Status: Condition improved, Complete relief, Pain improved Re-Evaluation/Progress Note: Pt rechecked. Tetracaine drops applied. Pain is much improved. Counseled Regarding: Diagnosis, Lab results, Need for follow-up, When/why to return to ED Discharge & Departure Primary Impression: Ultraviolet keratitis Laterality: bilateral Qualified Code: H16.133 - Photokeratitis, bilateral Disposition: Home Discharge Condition All VS Reviewed: Yes Condition: Stable Patient Instructions: Keratitis (ED) Additional Instructions: Apply ribbon of erythromycin ointment 4 times daily for the next 5 days. Take 1 -2 Percocet every 6 hours as needed for severe pain. Do not drive or drink alcohol or consume acetaminophen while taking the Percocet. Set up a follow-up with the referral electrical equipment tester for the next 48-72 hours. Come back him or department tomorrow if the symptoms have not improved significantly. Referrals: [facility]OPCP (PCP) [facility] Raphael Castrejon MD Attestation Portion of this note were transcribed by Lilian Verdugo. I, Dr. Strauss, personally performed the history, physical exam, and medical decision-making: I reviewed and confirmed the accuracy for the information in the transcribed note. Signed by: kandis Dill, 03/08/17 0300 copies to: [facility] Flo Strauss DO Mar 08, 2017 01:05 Lilian Verdugo Mar 08, 2017 01:30
[2017-03-08] MEDS ORDERED: Fluorescein 0.6 mg Ophthalmic Strip ONE (01:29)
[2017-03-08] MEDS ORDERED: 0.9% Sodium Chloride Inhalation Solution ONE (01:29)
[2017-03-08] MEDS ORDERED: _oxyCODONE/APAP 5-325 mg Tablet PO PRN (01:30)
[2017-03-08 02:48] VITALS: BP 130/80; PULSE 70; RESP 17; O2SAT 96
[2017-03-08] MEDS ORDERED: _Erythromycin 0.5% Oph Oint 3.5 gm AFFECT_EYE SCH (08:30)
== END 2017-03-08 02:49 | disposition home or self-care (01) ==
LOC: SED 00:57
DX: H16.133 Photokeratitis, bilateral (principal); K21.9 Gastro-esophageal reflux disease without esophagitis; I10 Essential (primary) hypertension; E11.9 Type 2 diabetes mellitus without complications; F17.200 Nicotine dependence, unspecified, uncomplicated; Z79.84 Long term (current) use of oral hypoglycemic drugs; Z79.899 Other long term (current) drug therapy; Z88.1 Allergy status to other antibiotic agents; Z88.5 Allergy status to narcotic agent; Z91.041 Radiographic dye allergy status